=== PATIENT | female | born 1950 | race Two or more races ===

== ENCOUNTER → 2019-10-16 | Outpatient (CLI) | payer OTHER | END | disposition home or self-care (01) | LOC: RAD 11:43 | DX: M79.641 Pain in right hand (principal); M18.10 Unilateral primary osteoarthritis of first carpometacarpal joint, unspecified hand ==

== ENCOUNTER 2020-08-24 12:41 | Emergency (ER) | payer OTHER ==
[~2020-08-24] VITALS: Ht 162.6 cm; Wt 65.8 kg
[2020-08-24] MEDS ORDERED: DURACHOL 3,7751 EACH (13:13)
== END 2020-08-24 15:54 | disposition home or self-care (01) ==
LOC: ER 12:41
DX: T59.811A Toxic effect of smoke, accidental (unintentional), initial encounter (principal); R20.8 Other disturbances of skin sensation; R12 Heartburn; Y92.038 Other place in apartment as the place of occurrence of the external cause

== ENCOUNTER 2021-03-09 12:45 | Outpatient (CLI) | payer OTHER ==
[~2021-03-09 12:45] MED LIST: DURACHOL 3,7751 EACH
== END 2021-03-09 13:00 | disposition home or self-care (01) ==
LOC: MRI 12:45
PROVIDERS: ATTEND Neuromusculoskeletal Medicine & OMM
DX: R22.0 Localized swelling, mass and lump, head (principal); F41.8 Other specified anxiety disorders
CPT/HCPCS: 70551

== ENCOUNTER 2023-10-03 08:17 | Outpatient (CLI) | payer OTHER | END 2023-10-03 08:23 | disposition home or self-care (01) | LOC: TOM 08:17 | DX: R41.3 Other amnesia (principal); I67.9 Cerebrovascular disease, unspecified | CPT/HCPCS: 70551 ==